=== PATIENT | female | born 2000 | race Caucasian/White ===

== ENCOUNTER 2023-11-25 08:58 | Emergency (ER) | payer SELFPAY ==
[~2023-11-25] VITALS: Ht 165.1 cm; Wt 65.0 kg
[2023-11-25 09:00] VITALS: BP 119/52; PULSE 86; RESP 18; TEMP 98.5; O2SAT 97
[2023-11-25] MEDS: ACETAMINOPHEN 500MG TABLET PO ONE (09:25)
== END 2023-11-25 15:21 | disposition home or self-care (01) ==
LOC: ER 10:06
DX: M79.602 Pain in left arm (principal); M79.601 Pain in right arm; F41.9 Anxiety disorder, unspecified; F31.9 Bipolar disorder, unspecified; Y08.89XA Assault by other specified means, initial encounter; Y93.89 Activity, other specified; Y92.89 Other specified places as the place of occurrence of the external cause; Y99.8 Other external cause status
CPT/HCPCS: 99283